=== PATIENT | male | born 1970 | race Caucasian/White ===

== ENCOUNTER 2018-12-27 11:24 | Emergency (ER) | payer MEDICARE, OTHER ==
[~2018-12-27] VITALS: Ht 172.7 cm; Wt 59.0 kg
[~2018-12-27 11:24] MED LIST: BENZ1TAB5 PO; CIPR500T94 PO; CITA20TA6 PO; HALO10TA PO; LOXA25CA PO; OXCA300T19 PO; TRAZ-118 PO
[2018-12-27] MEDS ORDERED: KETOROLAC 30 MG/ML VIAL. IV ONE (12:45)
[2018-12-27] MEDS ORDERED: IV NORMAL SALINE 1000ML BAG 1,000 ML IV ONE (12:45)
[2018-12-27] MEDS ORDERED: ONDANSETRON PF 4 MG/2 ML VIAL. IV ONE (12:45)
[2018-12-27 12:58] LABS: BASO % 1 % (0-3); EOS # 0.9 x10^3/uL (0.0-0.7); EOS % 14 % (0-3); HEMATOCRIT 42.7 % (39.0-53.0); HEMOGLOBIN 14.3 g/dL (13.0-17.5); LYMPH # 1.8 x10^3/uL (1.0-4.8); LYMPH % 27 % (24-48); MEAN CORPUSCULAR HEMOGLOBIN 33 pg (25-35); MEAN CORPUSCULAR HGB CONC 34 g/dL (31-37); MEAN CORPUSCULAR VOLUME 97 fL (79-100); MONO # 0.5 x10^3/uL (0.0-1.1); MONO % 7 % (0-9); NEUT # 3.6 x10^3uL (1.8-7.7); NEUT % 52 % (31-73); PLATELET COUNT 173 x10^3/uL (140-400); RED BLOOD COUNT 4.38 x10^6/uL (4.30-5.70); RED CELL DISTRIBUTION WIDTH 13.8 % (11.5-14.5); WHITE BLOOD COUNT 6.9 x10^3/uL (4.0-11.0)
[2018-12-27] MEDS ORDERED: IOHEXOL 300 MG/ML 100ML VIAL. IV ONE ×2 (13:00)
[2018-12-27] MEDS ORDERED: CONTRAST GIVEN. MC PRN ×2 (13:00→13:15)
[2018-12-27 13:09] LABS: CALCIUM 8.8 mg/dL (8.5-10.1); CREATININE 0.8 mg/dL (0.7-1.3); GFR 104.1; POTASSIUM 3.7 mmol/L (3.5-5.1)
[2018-12-27 13:16] LABS: ALBUMIN 3.6 g/dL (3.4-5.0); TOTAL BILIRUBIN 0.5 mg/dL (0.2-1.0); TOTAL PROTEIN 7.2 g/dL (6.4-8.2)
--- NOTE | 2018-12-27 13:38 | RAD ---
EXAM: Abdomen and pelvis CT with intravenous contrast. HISTORY: Right abdominal pain. TECHNIQUE: Computed tomographic images of the abdomen and pelvis were obtained following the administration of 75 cc Omnipaque 300 intravenous contrast. Multiplanar reformatting was performed. *One or more of the following individualized dose reduction techniques were utilized for this examination: 1. Automated exposure control. 2. Adjustment of the mA and/or kV according to patient size. 3. Use of iterative reconstruction technique. COMPARISON: None. FINDINGS: Evaluation of the lower thorax demonstrates no infiltrate, pleural effusion or suspicious pulmonary nodule. The heart is normal in size. No suspicious hepatic lesion is seen. The gallbladder, pancreas, spleen and adrenal glands are unremarkable. The kidneys are unremarkable. There is no appendicitis. There is moderate colonic stool. There is no abnormal bowel wall thickening or obstruction. The urinary bladder is unremarkable. There is no lymphadenopathy. There are multiple prominent thoracic and lumbar endplate Schmorl's nodes. There is no suspicious osseous lesion. IMPRESSION: 1. Moderate colonic stool. 2. Otherwise, relatively unremarkable abdomen and pelvis CT. Electronically signed by: Venessa Diaz MD (12/27/2018 1:34 PM) [facility]
[2018-12-27 14:03] LABS: BILIRUBIN,URINE NEGATIVE (NEG); CLARITY,URINE CLEAR; COLOR,URINE YELLOW; NITRITE,URINE NEGATIVE (NEG); PH,URINE 6.5; PROTEIN,URINE NEGATIVE (NEG-TRACE)
[2018-12-27 14:19] LABS: BACTERIA,URINE 0 /HPF (0-FEW); RBC,URINE 0 /HPF (0-2); WBC,URINE RARE /HPF (0-4)
[2018-12-27 14:24] LABS: AMPHETAMINE/METHAMPHETAMINE POS (NEG); BARBITURATES NEG (NEG); BENZODIAZEPINES NEG (NEG); CANNABINOIDS NEG (NEG); COCAINE NEG (NEG); METHADONE NEG (NEG); OPIATES NEG (NEG); PHENCYCLIDINE NEG (NEG)
[2018-12-27] MEDS ORDERED: MAGNESIUM CITRATE 296 ML SOLUTION. PO ONE (14:45)
[2018-12-27 15:00] VITALS: BP 126/77
[2018-12-27] MEDS ORDERED: POLY17PO29 PO (15:04)
--- NOTE | 2018-12-27 15:04 | PHYS DOC ---
Past Medical History Past Medical History: Alcoholism, Seizure, Schizophrenia, Other Additional Past Medical Histor: drug/alcohol past Past Surgical History: No Surgical History Additional Past Surgical Histo: unknown Alcohol Use: Rarely Drug Use: Methamphetamine Adult General Chief Complaint Chief Complaint: ABDOMINAL PAIN HPI HPI Patient is a 48 year old male with history of schizophrenia, who presents to the ED today complaining of mild intermittent right-sided abdominal pain with nausea that began this morning. Patient denies any vomiting. Denies any diarrhea. Denies any fever. Review of Systems Review of Systems Constitutional: Denies fever or chills [] Eyes: Denies change in visual acuity, redness, or eye pain [] HENT: Denies nasal congestion or sore throat [] Respiratory: Denies cough or shortness of breath [] Cardiovascular: No additional information not addressed in HPI [] GI: Reports right-sided abdominal pain with nausea, denies vomiting, bloody stools or diarrhea [] : Denies dysuria or hematuria [] Musculoskeletal: Denies back pain or joint pain [] Integument: Denies rash or skin lesions [] Neurologic: Denies headache, focal weakness or sensory changes [] All other systems were reviewed and found to be within normal limits, except as documented in this note. Current Medications Current Medications Current Medications Medications (Trade) Dose Ordered Sig/Otilio Start Time Stop Time Status Last Admin Dose Admin Info (CONTRAST GIVEN -- Rx MONITORING) 1 each PRN DAILY PRN 12/27/18 13:15 12/29/18 13:14 Iohexol (Omnipaque 300 Mg/ml) 75 ml 1X ONCE 12/27/18 13:00 12/27/18 13:02 DC Ketorolac Tromethamine (Toradol 30mg Vial) 30 mg 1X ONCE 12/27/18 12:45 12/27/18 12:46 DC 12/27/18 13:46 30 MG Magnesium Citrate (Citroma) 296 ml 1X ONCE 12/27/18 14:45 12/27/18 14:46 DC Ondansetron HCl (Zofran) 4 mg 1X ONCE 12/27/18 12:45 12/27/18 12:46 DC 12/27/18 13:45 4 MG Sodium Chloride 1,000 ml @ 1,000 mls/hr 1X ONCE 12/27/18 12:45 12/27/18 13:44 DC 12/27/18 13:45 1,000 MLS/HR Allergies Allergies Allergies Coded Allergies Type Severity Reaction Last Updated Verified No Known Drug Allergies 12/27/18 No Physical Exam Physical Exam Constitutional: Well developed, well nourished, no acute distress, non-toxic appearance. [] HENT: Normocephalic, atraumatic, bilateral external ears normal, oropharynx moist, no oral exudates, nose normal. [] Eyes: PERRLA, EOMI, conjunctiva normal, no discharge. [] Neck: Normal range of motion, no tenderness, supple, no stridor. [] Cardiovascular:Heart rate regular rhythm, no murmur [] Lungs & Thorax: Bilateral breath sounds clear to auscultation [] Abdomen: Bowel sounds normal, soft, no tenderness on palpation of the right upper quadrant, right lower quadrant, negative Mullins sign, negative psoas sign , negative obturator sign, negative Rovsing sign, no guarding, no rebound tenderness no masses, no pulsatile masses. [] Skin: Warm, dry, no erythema, no rash. [] Back: No tenderness, no CVA tenderness. [] Extremities: No tenderness, no cyanosis, no clubbing, ROM intact, no edema. [] Neurologic: Alert and oriented X 3, normal motor function, normal sensory function, no focal deficits noted. [] Psychologic: Affect normal, judgement normal, mood normal. [] Current Patient Data Vital Signs Vital Signs Date Time Temp Pulse Resp B/P (MAP) Pulse Ox O2 Delivery O2 Flow Rate FiO2 12/27/18 12:15 97.6 90 14 108/82 (91) 99 Room Air 97.6 Lab Values Laboratory Tests Test 12/27/18 12:42 12/27/18 13:40 White Blood Count 6.9 x10^3/uL (4.0-11.0) Red Blood Count 4.38 x10^6/uL (4.30-5.70) Hemoglobin 14.3 g/dL (13.0-17.5) Hematocrit 42.7 % (39.0-53.0) Mean Corpuscular Volume 97 fL (79-100) Mean Corpuscular Hemoglobin 33 pg (25-35) Mean Corpuscular Hemoglobin Concent 34 g/dL (31-37) Red Cell Distribution Width 13.8 % (11.5-14.5) Platelet Count 173 x10^3/uL (140-400) Neutrophils (%) (Auto) 52 % (31-73) Lymphocytes (%) (Auto) 27 % (24-48) Monocytes (%) (Auto) 7 % (0-9) Eosinophils (%) (Auto) 14 % (0-3) H Basophils (%) (Auto) 1 % (0-3) Neutrophils # (Auto) 3.6 x10^3uL (1.8-7.7) Lymphocytes # (Auto) 1.8 x10^3/uL (1.0-4.8) Monocytes # (Auto) 0.5 x10^3/uL (0.0-1.1) Eosinophils # (Auto) 0.9 x10^3/uL (0.0-0.7) H Basophils # (Auto) 0.0 x10^3/uL (0.0-0.2) Sodium Level 141 mmol/L (136-145) Potassium Level 3.7 mmol/L (3.5-5.1) Chloride Level 104 mmol/L (98-107) Carbon Dioxide Level 28 mmol/L (21-32) Anion Gap 9 (6-14) Blood Urea Nitrogen 10 mg/dL (8-26) Creatinine 0.8 mg/dL (0.7-1.3) Estimated GFR (Cockcroft-Gault) 104.1 BUN/Creatinine Ratio 13 (6-20) Glucose Level 67 mg/dL (70-99) L Calcium Level 8.8 mg/dL (8.5-10.1) Total Bilirubin 0.5 mg/dL (0.2-1.0) Aspartate Amino Transferase (AST) 11 U/L (15-37) L Alanine Aminotransferase (ALT) 15 U/L (16-63) L Alkaline Phosphatase 83 U/L (46-116) Total Protein 7.2 g/dL (6.4-8.2) Albumin 3.6 g/dL (3.4-5.0) Albumin/Globulin Ratio 1.0 (1.0-1.7) Lipase 74 U/L (73-393) Ethyl Alcohol Level < 10 mg/dL (0-10) Urine Collection Type Unknown Urine Color Yellow Urine Clarity Clear Urine pH 6.5 Urine Specific [place] >=1.030 Urine Protein Negative mg/dL (NEG-TRACE) Urine Glucose (UA) Negative mg/dL (NEG) Urine Ketones (Stick) Negative mg/dL (NEG) Urine Blood Negative (NEG) Urine Nitrite Negative (NEG) Urine Bilirubin Negative (NEG) Urine Urobilinogen Dipstick 1.0 mg/dL (0.2 mg/dL) Urine Leukocyte Esterase Negative (NEG) Urine RBC 0 /HPF (0-2) Urine WBC Rare /HPF (0-4) Urine Squamous Epithelial Cells None /LPF Urine Bacteria 0 /HPF (0-FEW) Urine Opiates Screen Neg (NEG) Urine Methadone Screen Neg (NEG) Urine Barbiturates Neg (NEG) Urine Phencyclidine Screen Neg (NEG) Urine Amphetamine/Methamphetamine Pos (NEG) Urine Benzodiazepines Screen Neg (NEG) Urine Cocaine Screen Neg (NEG) Urine Cannabinoids Screen Neg (NEG) Urine Ethyl Alcohol Neg (NEG) Laboratory Tests 12/27/18 12:42 Laboratory Tests 12/27/18 12:42 EKG EKG [] Radiology/Procedures Radiology/Procedures [] Course & Med Decision Making Course & Med Decision Making Pertinent Labs and Imaging studies reviewed. (See chart for details) This is a 48-year-old male patient presenting to the ED today with right-sided abdominal pain with nausea, CBC, CMP, lipase with no acute findings. Urine analysis is negative for infection, CT of the abdomen and pelvic was negative for any acute findings, noted for constipation. Patient given magnesium citrate in the ED. Discharged on MiraLAX. Educated on constipation management including increasing dietary fiber intake as well as water intake. Dragon Disclaimer Dragon Disclaimer This electronic medical record was generated, in whole or in part, using a voice recognition dictation system. Departure Departure Impression: Primary Impression: Constipation Additional Impression: Right sided abdominal pain Disposition: HOME, SELF-CARE Condition: STABLE Referrals: UNKNOWN PCP NAME (PCP) AURELIANO ALEXIS MD follow up in 1 week Patient Instructions: Constipation, Adult Additional Instructions: You were evaluated in the emergency room for abdominal pain and noted to be constipated. Please increase your dietary fiber intake, increase your water intake, take MiraLAX every day. Follow-up with your doctor in 1-2 weeks. Scripts Polyethylene Glycol 3350 (MIRALAX) 17 Gm Powd.pack 1 PACKET PO DAILY, #30 PACKET 3 Refills Prov: LANIE SIEGEL APRN 12/27/18 Problem Qualifiers Primary Impression: Constipation Constipation type: unspecified constipation type Qualified Codes: K59.00 - Constipation, unspecified LANIE SIEGEL APRN Dec 27, 2018 15:04
== END 2018-12-27 15:23 | disposition home or self-care (01) ==
LOC: ER 11:24
DX: K59.00 Constipation, unspecified (principal); F20.9 Schizophrenia, unspecified; F10.20 Alcohol dependence, uncomplicated; Y90.9 Presence of alcohol in blood, level not specified
CPT/HCPCS: 36415; 74177; 80053; 80307; 81001; 83690; 85025; 96374; 96375; 99284; G0480; J1885; J2405; J7030